=== PATIENT | male | born 1950 | race African-American/Black ===

== ENCOUNTER 2017-11-11 05:50 | Day surgery (SDC) | payer MEDICARE, OTHER ==
[~2017-11-11] VITALS: Ht 166.4 cm; Wt 72.6 kg
[2017-11-11] VITALS (12 sets, daily range): BP systolic 130–158; BP diastolic 83–96
[2017-11-11] MEDS ORDERED: Proparacaine 0.5% Opth Soln 15ml RIGHT EYE ONE (07:00)
[2017-11-11] MEDS ORDERED: Tetracaine 0.5% Opth 4ml Soln RIGHT EYE ONE (07:00)
[2017-11-11] MEDS ORDERED: Akten 3.5% 1ml Btl RIGHT EYE ONE (07:00)
[2017-11-11] MEDS ORDERED: BSS 15ml BTL ONE ×2 (09:45→11:06)
[2017-11-11] MEDS ORDERED: Pilocarpine 2% Opth 15ml Soln ONE (09:45)
[2017-11-11] MEDS ORDERED: Povidone-Iodine 5% opth solution ONE (09:45)
[2017-11-11] MEDS ORDERED: Sodium Hyaluronate 14 mg/ml 0.85ml ONE (09:45)
[2017-11-11] MEDS ORDERED: Sterile Water 10ml Vial ONE (10:00)
[2017-11-11] MEDS ORDERED: EPINEPHrine 1mg/1ml Amp ONE ×2 (10:00→11:06)
[2017-11-11] MEDS ORDERED: Dexamethasone 4mg/ml vial ONE (10:00)
[2017-11-11] MEDS ORDERED: Pred Forte 1% Opth Susp 1ml ONE (10:00)
[2017-11-11] MEDS ORDERED: Maxitrol Opth Oint 3.5gm ONE (10:00)
[2017-11-11] MEDS ORDERED: BSS 500ml btl ONE (10:00)
[2017-11-11] MEDS: Cyclopentolate 1% Opth Sol 2ml RIGHT EYE SCH ×3 (10:02→10:19)
[2017-11-11] MEDS: Phenylephrine 10% Opth Soln 5ml RIGHT EYE SCH ×3 (10:03→10:18)
[2017-11-11] MEDS: Tropicamide 1% Opth 15ml Soln RIGHT EYE SCH ×3 (10:03→10:18)
[2017-11-11] MEDS: Ketorolac Tromethamine Opth 5ml Soln RIGHT EYE SCH ×4 (10:04→10:21)
[2017-11-11] MEDS: Tobramycin Op Soln 0.3% 5ml RIGHT EYE SCH ×3 (10:05→10:20)
[2017-11-11] MEDS ORDERED: fentaNYL 100 mcg/2 mL IV ONE (10:30)
[2017-11-11] MEDS ORDERED: LR 1000ml ONE (10:30)
[2017-11-11] MEDS ORDERED: Sterile Water Irrig 1000ml IRRIG ONE (10:30)
[2017-11-11] MEDS ORDERED: HYDROCHLOROTHIA25 MG ORAL (10:30)
[2017-11-11] MEDS ORDERED: Propofol 200mg/20ml IV ONE (10:30)
[2017-11-11] MEDS ORDERED: NS Irrig 1000ml ONE (10:30)
[2017-11-11] MEDS ORDERED: Midazolam 2mg/2ml Inj ONE (10:30)
[2017-11-11] MEDS ORDERED: NORVASC2.5 MG ORAL (10:31)
[2017-11-11] MEDS ORDERED: LOSARTAN POTASS25 MG ORAL (10:31)
--- NOTE | 2017-11-11 10:50 | Anethesia Preoperative Eval ---
Anesthesia Pre-op PMH/ROS General Date of Evaluation: Nov 11, 2017 Time of Evaluation: 10:18 Anesthesiologist: Barbara ASA Score: ASA 2 Mallampati Score Class I : Soft palate, uvula, fauces, pillars visible Class II: Soft palate, uvula, fauces visible Class III: Soft palate, base of uvula visible Class IV: Only hard plate visible Mallampati Classification: Class II Surgeon: Sandra Diagnosis: velia bee Surgical Procedure: R eye cataract extracion Anesthesia History: none Social History: smoking - h/o Family History: no anesthesia problems Allergies: Coded Allergies: No Known Allergies (Unverified , 11/10/17) Medications: see eMAR Past Medical History Cardiovascular: Reports: HTN, Denies: CAD, CO, valve dz, arrhythmia, other Pulmonary: Denies: asthma, COPD, GERALDINE, other Gastrointestinal/Genitourinary: Reports: GERD, Denies: CRI, ESRD, other Neurologic/Psychiatric: Denies: dementia, CVA, depression/anxiety, TIA, other Endocrine: Denies: DM, hypothyroidism, steroids, other HEENT: Reports: cataract (L), cataract (R), Denies: glaucoma, [place] (L), [place] (R), other Hematology/Immune: Denies: anemia, DVT, bleeding disorder, other Musculoskeletal/Integumentary: Denies: OA, RA, DJD, DDD, edema, other PMH Narrative: as above PSxH Narrative: see H&P Anesthesia Pre-op Phys. Exam Physician Exam Last Vital Signs Date Time Temp Pulse Resp B/P (MAP) Pulse Ox O2 Delivery O2 Flow Rate FiO2 11/11/17 10:22 98.6 76 18 150/96 97 Room Air 98.6 Constitutional: NAD Neurologic: CN 2-12 intact Cardiovascular: RRR, no M/R/G Respiratory: CTA Gastrointestinal: S/NT/ND Airway Exam Mallampati Score: Class II MO: full Neck: stiff ROM: limited Teeth: missing Dentures: no upper, no lower Anesthesia Pre-op A/P Labs see chart Risk Assessment & Plan Assessment: ASA 2 Plan: MAC Status Change Before Surgery: No Pre-Antibiotics Drug: none DANY MERAZ M.D. Nov 11, 2017 10:50
[2017-11-11] MEDS ORDERED: DiphenhydrAMINE 50mg/ml Inj IVP PRN (11:00)
[2017-11-11] MEDS ORDERED: fentaNYL 100 mcg/2 mL IV PRN (11:00)
[2017-11-11] MEDS ORDERED: Lidocaine 2% MPF 5ml Vial INJ ONE (11:06)
--- NOTE | 2017-11-11 12:12 | Brief Operative Note ---
Immediate Post Operative Note Operative Note Chief Complaint: blurry vision, OD Pre-op Diagnosis: cataract, od Procedure: phaco with iol, od Post-op Diagnosis: pseudophakia Post-op Diagnosis: same as pre-op Findings: consistent w/pre-op dx studies Surgeon: rosario Anesthesiologist: yoav Anesthesia: MAC Specimen: none Complications: none Condition: stable Fluids: LR Estimated Blood Loss: none Drains: none Implant(s) used?: Yes GAMALIEL ESPINO Nov 11, 2017 12:12
--- NOTE | 2017-11-11 12:13 | Operative Note - PDOC ---
Operative Note Operative Note Chief Complaint: blurry vision, OD Pre-op Diagnosis: cataract, od Procedure: phaco with iol, od Post-op Diagnosis: pseudophakia Post-op Diagnosis: same as pre-op Operative Findings: consistent w/pre-op dx studies Surgeon: rosario Anesthesiologist: yoav Anesthesia: MAC Specimen: none Complications: none Condition: stable Fluids: LR Estimated Blood Loss: none Drains: none Implant(s) used?: Yes Indications for Procedure cataract Description of Procedure This patient has been complaining visually significant cataract in the affected eye with the best corrected visual acuity under moderate glare conditions worse. The patient complains of difficulties with glare in performing activities of daily living and wants to manage personal affairs with comfort and accuracy and see well enough to move with safety at home and outdoors. The risks, benefits and alternatives of the procedure were discussed with the patient in the office prior to scheduling surgery. All questions from the patient were answered after the surgical procedure was explained in detail. The risks of the procedure as explained to the patient include, but are not limited to, pain, infection, bleeding, loss of vision, retinal detachment, need for further surgery, loss of lens nucleus, double vision, etc. Alternative procedures were discussed which include, to do nothing or seek a second opinion. Informed consent for this procedure was obtained from the patient. The patient was referred to a primary care physician for a cardiopulmonary clearance prior to surgery, after proper evaluation was done patient was properly scheduled for outpatient surgery. The patient was brought to the operating room where the anesthesiologist established I.V. lines and cardiac monitoring leads. Mild intravenous sedation was administered. The patient was then prepared with a 5% solution of povidone -iodine to the conjunctival fornix and lashes, and a 5% solution of povidone- iodine to the lids and periorbital skin. The patient was then draped in the usual sterile fashion. A lid speculum was then placed in the operative eye. A keratome blade was then used to create a biplanar incision into the anterior chamber. Viscoelastics was then instilled into the anterior chamber. A capsulorrhexis was then fashioned with an utrata forceps. BSS and a cannula were then used to hydrodissect and hydro delineate the lens. Paracentesis incision was made at 3 o'clock with sharp blade. The phacoemulsification unit, after being properly adjusted and tested, was then used to emulsify the nucleus. Residual cortical material was aspirated with the irrigation and aspiration unit. Healon was then instilled into the anterior chamber. The corneal wound was then enlarged to the size of the optic with the markel keratome blade. The intraocular lens was then inspected for right power and size and thought to be satisfactory. Then the lens was gently placed in the capsular bag. Positioning within the capsular bag was confirmed by direct visualization. Viscoelastics was removed from the anterior chamber using the irrigation and aspiration unit. The corneal wound was then tested for leaks and none were found. The lid speculum were then removed. Sponge and needle counts were correct. An eye patch and shield were placed over the operative eye. The patient was taken to the recovery room in stable condition. There were no complications. The patient tolerated the procedure well. The patient was then transferred to the ambulatory surgery unit in stable and satisfactory condition , was given detailed written instructions and asked to follow up in the office the next day. GAMALIEL ESPINO Nov 11, 2017 12:13
--- NOTE | 2017-11-11 13:03 | Immediate Post-Op Evaluation ---
Immediate Post-Op Evalulation Immediate Post-Op Evalulation Procedure: R eye cataract extraction with IOL Date of Evaluation: Nov 11, 2017 Time of Evaluation: 11:02 IV Fluids: 300 Blood Products: none Estimated Blood Loss: none Urinary Output: none Blood Pressure Systolic: 156 Blood Pressure Diastolic: 86 Pulse Rate: 78 Respiratory Rate: 20 O2 Sat by Pulse Oximetry: 99 Temperature (Fahrenheit): 97.2 Pain Score (1-10): 1 Nausea: No Vomiting: No Complications none Patient Status: awake, patent, none Hydration Status: adequate DANY MERAZ M.D. Nov 11, 2017 13:03
--- NOTE | 2017-11-11 13:04 | 48 Hour Post Anesthesia Eval ---
Post Anesthesia Evaluation Procedure: R eye cataract extraction with IOL Date of Evaluation: Nov 11, 2017 Time of Evaluation: 13:03 Blood Pressure Systolic: 148 0: 74 Pulse Rate: 68 Respiratory Rate: 20 Temperature (Fahrenheit): 97.5 O2 Sat by Pulse Oximetry: 98 Airway: patent Nausea: No Vomiting: No Pain Intensity: 1 Hydration Status: adequate Cardiopulmonary Status: stable Mental Status/LOC: patient returned to baseline Follow-up Care/Observations: n/a Post-Anesthesia Complications: none Follow-up care needed: ready to discharge DANY MERAZ M.D. Nov 11, 2017 13:04
--- NOTE | 2017-11-23 01:01 | Physician Query ---
--------- THIS DOCUMENT IS A PERMANENT PART OF THE MEDICAL RECORD --------- PLEASE COMPLETE DOCUMENT BEFORE SIGNING Dear Dr. ESPINO Date: 11/22/17 [employer] Agent/CDS Name: ANGELO ROBISON, FAUSTO Exercise your independent professional judgment when responding to the query. Questions asked do not imply a particular answer is desired or expected. We greatly appreciate your clarification on this issue. CLINICAL DOCUMENTATION STATES: Operative Note Operative Note Chief Complaint: blurry vision, OD Pre-op Diagnosis: cataract, od Procedure: phaco with iol, od Post-op Diagnosis: pseudophakia Post-op Diagnosis: same as pre-op Please respond to the following question: WHAT TYPE OF CATARACT DID THE PATIENT HAVE IF KNOWN? PHYSICIAN RESPONSE: NUCLEAR SCLEROTIC AGE RELATED RIGHT EYE GAMALIEL ESPINO M.D. DATE & TIME [facility]
== END 2017-11-11 13:30 | disposition home or self-care (01) ==
LOC: SUR 05:50
DX: H25.11 Age-related nuclear cataract, right eye (principal); I10 Essential (primary) hypertension; K21.9 Gastro-esophageal reflux disease without esophagitis
CPT/HCPCS: 66984; J0171; J1100; J2250; J2704; J3010; J3370; J7120; V2632; 94003; 94150; A4216

== ENCOUNTER 2019-08-11 15:07 | Inpatient (IN) | payer MEDICARE, OTHER ==
[~2019-08-11] VITALS: Ht 172.7 cm; Wt 64.0 kg
[2019-08-11] VITALS (20 sets, daily range): BP systolic 70–120; BP diastolic 20–52
[~2019-08-11 15:07] MED LIST: HYDROCHLOROTHIA25 MG ORAL; LOSARTAN POTASS25 MG ORAL; NORVASC2.5 MG ORAL
[2019-08-11] MEDS ORDERED: Versed 50mg/D5W 100ml 100 ML IV ONE ×2 (15:15→16:15)
--- NOTE | 2019-08-11 15:20 | NUR ---
ED Nurse Note: Patient brought in to ER from [facility] due to respiratory distress. pt had intubation upon arrival by EMT. 7mm, 24cm on Rt side. RT at bedside, mechanical ventilation initiated at FiO2 45%. pt non verbal and open eyes spontaneously but responds to deep pain only. pt restless and moving all extremities. skin dry and Rt elbow skin tear noted but no pressure ulcer noted. abdoman distended and RLQ puncture site with dressing noted.
--- NOTE | 2019-08-11 15:21 | Emergency Room Report ---
History of Present Illness General Chief Complaint: Dyspnea/Respdistress Source: Family Member, Medical Record, EMS Present Illness HPI The patient was brought by paramedics. He was in respiratory distress. His blood pressure in the field was 74/42. They were using a bag valve mask but then intubate the patient. His Accu-Chek was 83. There is no glaucoma Tirso Coma Scale was 3. They report that his right pupil is pinpoint. The patient has a history of IV drug abuse. He is a full code however there is a note on his paperwork that says he is hospice. The patient is intubated and cannot answer questions. From review of the records the patient has metastatic liver cancer, ascites, leukocytosis, anemia, history of hypertension, alcohol and drug abuse. He was also seen on the and had acute kidney injury. Family states the patient was receiving oxycodone for pain. He was responsive before he deteriorated. Allergies: Coded Allergies: No Known Allergies (Unverified , 11/10/17) Patient History Limited by: medical condition Past Medical History: see triage record, old chart reviewed Social History: Denies: smoking, alcohol use - prior, drug use - in past Social History Narrative SNF Reviewed Nursing Documentation: PMH: Agreed; PSxH: Agreed Nursing Documentation-PMH Past Medical History: No History, Except For Hx Cardiac Problems: No - Anemia Hx Hypertension: Yes - ETOH abuse Hx Cancer: Yes - Metastatic liver CA Hx Gastrointestinal Problems: Yes - Ascites, cirrhosis, leukocytosis Hx Neurological Problems: No Review of Systems All Other Systems: limited Physical Exam Vital Signs Date Time Temp Pulse Resp B/P (MAP) Pulse Ox O2 Delivery O2 Flow Rate FiO2 08/11/19 15:11 72 12 70/52 (58) 94 Endotracheal Tube Sp02 EP Interpretation: reviewed, abnormal - Interpreted as low by me General Appearance: Chronically Ill, Stupor Head: normocephalic, atraumatic Eyes: left eye other - opacity; bilateral eye Scleral Injection ENT: moist mucus membranes, other - ET tube Neck: supple Respiratory: decreased breath sounds, crackles Cardiovascular #1: regular rate, rhythm, edema Cardiovascular #2: 2+ radial (R) Gastrointestinal: distended - Minimally, other - dressing R flank - most likely from paracentesis/or bx, decreased bowel sounds Genitourinary: penis normal - uncircumcised Musculoskeletal: decreased range of motion Neurologic: other - unresponsive Psychiatric: other - flaccid Reflexes: 1+ knee (R), 1+ knee (L) Skin: other - cool Procedures Critical Care Time Critical Care Time Total Critical Care Time: 120 min bedside evaluation and treatment excludes procedures (EKG). Reason for critical care: resp failure, NSTEMI, metabolic acidosis, profound anemia, hypotension, sepsis Possible complications: hypotension, hypertension, IL, shock, arrhythmias, metabolic acidosis, end organ damage, respiratory failure. Interventions: EJ, vent orders, blood draw by ERMD, blood transfusion order, discussion with blood bank, antibiotics, fluid bolus, bicarb, reassessment, warming, discussion with pharmacy,. discussion level of care with family Course: Patient presented with EMS after respiratory failure and intubation. Fluid bolus begun after EJ begun by me. Call with critical hemoglobin. Blood transfusion up ordered. Call with elevated troponin. Aspirin administered. ABG obtained on vent. Profound acidosis. Bicarbonate administered. Sedation ordered. Patient more alert. Elevated white count. Antibiotics ordered. Chest x-ray obtained with pulmonary infiltrates. Blood pressure improved. 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 Discussion with pharmacy. Family present and insisted on DNR status. OG tube ordered. Removed by nurse. Abdominal film unremarkable. Blood pressure improved. Prognosis poor. Discussed in detail with admitting physicians. Consultations: nursing staff, EMS, family, admitting MDs, RT, pharmacy Performed by: Dr. Marroquin Tolerated well condition = critical Medical Decision Making Diagnostic Impression: Primary Impression: Respiratory failure Qualified Codes: J96.01 - Acute respiratory failure with hypoxia Additional Impressions: Hypothermia Qualified Codes: T68.XXXA - Hypothermia, initial encounter Profound anemia Qualified Codes: D64.9 - Anemia, unspecified Transient hypotension Metabolic acidosis Elevated troponin NSTEMI (non-ST elevated myocardial infarction) Severe sepsis Pancreatitis Qualified Codes: K85.90 - Acute pancreatitis without necrosis or infection, unspecified Elevated liver enzymes ER Course Patient with respiratory failure in the field and hypotension intubated. Differential includes opiate excess, sepsis, acute myocardial infarction, respiratory failure amongst others. The patient needs to be stabilized. There is no IV access and I started a external jugular on the left-hand side. Labs drawn by me femoral he. Fluid bolus administered. EKG, chest x-ray, blood cultures and labs ordered. He is starting to respond and blood pressure initially better. EKG with sinus rhythm right bundle branch block rate 72 left anterior superior hemiblock. Bloods drawn by ga R femoral 30 cc. Call for critical low hemoglobin. Blood transfusion ordered. Blood pressure is already improved with IV bolus. Capillary fill good. Tachypnea above vent rate. More alert. (Sepsis re-eval 16:00) ABG with profound acidosis. Need to investigate possible causes. Bicarb ordered. Elevated WBC and lactic acid. 16:50. Antibiotics ordered. Also fomepizole ordered. Elevated liver function test. Elevated lipase. Aspirin ordered for + troponin. Pharmacy states fomepizole on back order. Requested they get it from other hospital. Family want DNR. Patient was Hospice. Patient made DNR. About to start central line, but family make patient DNR. Lactic acid, acidosis probably combination of sepsis and liver dysfunction - however other causes need to be excluded. Patient admitted ICU, improved but critical. Blood not started in ED. blood consent signed by family. Prognosis poor. Laboratory Tests Test 08/11/19 15:10 08/11/19 15:57 White Blood Count 32.5 K/UL (4.8-10.8) *H Red Blood Count 1.73 M/UL (4.70-6.10) L Hemoglobin 5.2 G/DL (14.2-18.0) *L Hematocrit 17.3 % (42.0-52.0) L Mean Corpuscular Volume 100 FL (80-99) H Mean Corpuscular Hemoglobin 30.1 PG (27.0-31.0) Mean Corpuscular Hemoglobin Concent 30.1 G/DL (32.0-36.0) L Red Cell Distribution Width 16.0 % (11.6-14.8) H Platelet Count 299 K/UL (150-450) Mean Platelet Volume 4.6 FL (6.5-10.1) L Neutrophils (%) (Auto) % (45.0-75.0) Lymphocytes (%) (Auto) % (20.0-45.0) Monocytes (%) (Auto) % (1.0-10.0) Eosinophils (%) (Auto) % (0.0-3.0) Basophils (%) (Auto) % (0.0-2.0) Neutrophils % (Manual) Pending Lymphocytes % (Manual) Pending Platelet Estimate Pending Platelet Morphology Pending Prothrombin Time 20.9 SEC (9.30-11.50) H Prothrombin Time INR 2.0 (0.9-1.1) H PTT 62 SEC (23-33) H Sodium Level 129 MMOL/L (136-145) L Potassium Level 5.4 MMOL/L (3.5-5.1) H Chloride Level 96 MMOL/L (98-107) L Carbon Dioxide Level 8 MMOL/L (21-32) *L Anion Gap 26 mmol/L (5-15) H Blood Urea Nitrogen 33 mg/dL (7-18) H Creatinine 3.8 MG/DL (0.55-1.30) H Estimate Glomerular Filtration Rate 19.3 mL/min (>60) Glucose Level 46 MG/DL (74-106) L Osmolality 297 mOsm/kg (297-317) Lactic Acid Level 19.50 mmol/L (0.4-2.0) H Calcium Level 8.2 MG/DL (8.5-10.1) L Magnesium Level 3.2 MG/DL (1.8-2.4) H Total Bilirubin 1.9 MG/DL (0.2-1.0) H Direct Bilirubin 1.2 MG/DL (0.0-0.3) H Aspartate Amino Transferase (AST) 296 U/L (15-37) H Alanine Aminotransferase (ALT) 145 U/L (12-78) H Alkaline Phosphatase 73 U/L (46-116) Total Creatine Kinase 565 U/L (26-308) H Troponin I 0.326 ng/mL (0.000-0.056) Pro-B-Type Natriuretic Peptide 459 pg/mL (0-125) H Total Protein 6.0 G/DL (6.4-8.2) L Albumin 2.3 G/DL (3.4-5.0) L Globulin 3.7 g/dL Albumin/Globulin Ratio 0.6 (1.0-2.7) L Lipase 859 U/L (73-393) H Thyroid Stimulating Hormone (TSH) 1.662 uiU/mL (0.358-3.740) Salicylates Level < 0.2 ug/mL (2.8-20) L Acetaminophen Level 2 MCG/ML (10-30) L Serum Alcohol < 3 mg/dL Arterial Blood pH 6.741 (7.350-7.450) Arterial Blood Partial Pressure CO2 31.2 mmHg (35.0-45.0) L Arterial Blood Partial Pressure O2 111.6 mmHg (75.0-100.0) H Arterial Blood HCO3 4.1 mmol/L (22.0-26.0) *L Arterial Blood Oxygen Saturation 90.9 % (95-100) L Arterial Blood Base Excess -28.5 (-2-2) *L Zeeshan Test Positive EKG Diagnostic Results Rate: normal Rhythm: NSR ST Segments: no acute changes - Bundle branch block/ Rhythm Strip Diag. Results EP Interpretation: yes Rhythm: NSR, no PVC's, no ectopy Chest X-Ray Diagnostic Results Chest X-Ray Diagnostic Results : Chest X-Ray Ordered: Yes # of Views/Limited/Complete: 1 View Indication: Other EP Interpretation: Yes Interpretation: no effusion, no pneumothorax, other - ET good, bilat infiltrates Impression: Other Electronically Signed by: Electronically signed by Reuben Marroquin MD Other X-Ray Diagnostic Results Other X-Ray Diagnostic Results : X-Ray ordered: Abdomen # of Views/Limited Vs Complete: 2 View Indication: Other EP Interpretation: Yes Interpretation: nonspecific bowel gas, no sbo, other - No masses Impression: No acute disease Electronically Signed by: Electronically signed by Reuben Marroquin MD BP 95/23, HR 80 on transfer Status: improved Disposition: ADMITTED INPATIENT Condition: Critical Reuben Marroquin MD Aug 11, 2019 15:21
--- NOTE | 2019-08-11 15:25 | NUR ---
ED Nurse Note: rectal temp 92.9F reported toERMD.
--- NOTE | 2019-08-11 15:30 | NUR ---
ED Nurse Note: ERMD inserted EJ on Lt side and blood was drawn from Rt femoral by ERMD. blood work and swab sent to lab.
[2019-08-11 15:51] LABS: HEMATOCRIT 17.3 % (42.0-52.0); MEAN CORPUSCULAR VOLUME 100 FL (80-99); PLATELET COUNT 299 K/UL (150-450); RED BLOOD COUNT 1.73 M/UL (4.70-6.10)
[2019-08-11 16:05] LABS: WHITE BLOOD COUNT 32.5 K/UL (4.8-10.8)
[2019-08-11 16:06] LABS: HEMOGLOBIN 5.2 G/DL (14.2-18.0)
--- NOTE | 2019-08-11 16:09 | NUR ---
ED Nurse Note: ABG at bedside per RT.
[2019-08-11 16:29] LABS: ALANINE AMINOTRANSFERASE 145 U/L (12-78); ALBUMIN 2.3 G/DL (3.4-5.0); ALBUMIN/GLOBULIN RATIO 0.6 (1.0-2.7); ALKALINE PHOSPHATASE 73 U/L (46-116); ANION GAP 26 mmol/L (5-15); ASPARTATE AMINO TRANSFERASE 296 U/L (15-37); BILIRUBIN,TOTAL 1.9 MG/DL (0.2-1.0); BLOOD UREA NITROGEN 33 mg/dL (7-18); CALCIUM 8.2 MG/DL (8.5-10.1); CHLORIDE 96 MMOL/L (98-107); CREATINE KINASE 565 U/L (26-308); CREATININE 3.8 MG/DL (0.55-1.30); POTASSIUM 5.4 MMOL/L (3.5-5.1); SODIUM 129 MMOL/L (136-145)
[2019-08-11] MEDS ORDERED: Sodium Bicarbonate 50ml Carp IV ONE (16:30)
[2019-08-11 16:31] LABS: CARBON DIOXIDE 8 MMOL/L (21-32)
[2019-08-11 16:32] LABS: BILIRUBIN,DIRECT 1.2 MG/DL (0.0-0.3)
--- NOTE | 2019-08-11 16:50 | NUR ---
ED Nurse Note: no urine present in urine bag. CN informed.
--- NOTE | 2019-08-11 16:59 | NUR ---
ED Nurse Note: per pharmacist, medication Fomepizol is not available.
[2019-08-11] MEDS ORDERED: Vancomycin 1 GM in NS 275 ML IVPB ONE (17:00)
[2019-08-11] MEDS ORDERED: Piperacillin/Tazobactam 3.375 GM in NS 110 ML IVPB ONE (17:00)
[2019-08-11] MEDS ORDERED: LORazepam Inj 2mg/ml 1ml IV PRN (17:15)
[2019-08-11] MEDS ORDERED: Morphine Sulfate 4mg/ml Inj (IV USE ONLY) IVP PRN (17:15)
[2019-08-11] MEDS ORDERED: Albuterol/Ipratropium 3ml neb HHN PRN (17:15)
[2019-08-11] MEDS ORDERED: Nitroglycerin Subl 0.4mg tab SL PRN (17:15)
[2019-08-11] MEDS ORDERED: Miralax 17gm pkt ORAL PRN (17:15)
--- NOTE | 2019-08-11 17:19 | NUR ---
ED Nurse Note: ALLISON spoke to pt's sister. pt is DNR. ALLISON, CN, nursing food service supervisor made aware. NGT removed by ALLISON's verbal order.
--- NOTE | 2019-08-11 17:24 | NUR ---
ED Nurse Note: per CN, ERMD will insert central line. will wait for Ammonia and lactic reflux.
--- NOTE | 2019-08-11 17:34 | NUR ---
ED Nurse Note: per CN, ERMD said no need to draw ammonia and lactic reflux and no need to insert OG tube, no urine output was informed. per CN, finish Zosyn and start Vancomycin. pt is ok to be transferred to ICU without initiating blood transfusion.
--- NOTE | 2019-08-11 17:39 | NUR ---
ED Nurse Note: x-ray for abdoman at bedside.
--- NOTE | 2019-08-11 17:41 | Diagnostic Imaging Report ---
EXAM: XR Chest, 1 View CLINICAL HISTORY: S/P INTUB TECHNIQUE: Frontal view of the chest. COMPARISON: No relevant prior studies available. FINDINGS: Lungs: Pulmonary edema/infiltrates, right more than left. Pleural space: Unremarkable. No pneumothorax. Heart: Unremarkable. No cardiomegaly. Mediastinum: Unremarkable. Bones/joints: Unremarkable. Tubes, lines and devices: ET tube 2 cm above the wan. IMPRESSION: 1. ET tube 2 cm above the wan. 2. Pulmonary edema/infiltrates, right more than left.
[2019-08-11] MEDS ORDERED: ROXICODONE15 MG ORAL (17:42)
[2019-08-11] MEDS ORDERED: BACTRIM DS TAB1 EAC1 ORAL (17:42)
[2019-08-11] MEDS ORDERED: IMODIUM MULTI-1 EACH PO (17:42)
[2019-08-11] MEDS ORDERED: DOCUSATE SODIU100 MG ORAL (17:42)
[2019-08-11] MEDS ORDERED: ZOFRAN4 M3 ORAL (17:42)
[2019-08-11] MEDS ORDERED: FERROUS SULFAT325 MG ORAL (17:42)
--- NOTE | 2019-08-11 17:59 | NUR ---
NURSE NOTES: Report received from AAMIR Malloy.
--- NOTE | 2019-08-11 18:15 | NUR ---
ED Nurse Note: report given to AAMIR Alexis.
--- NOTE | 2019-08-11 18:20 | NUR ---
ED Nurse Note: pt transferred to ICU with 2 RN and 1 RT. Reuben and KRISS Clark at ICU notified no urine present in urine bag, ERMD made aware and blood transfusion has not initiated and ERMD said it is ok to transfer pt to ICU. blood transfusion consent was handed to AAMIR Alexis.
--- NOTE | 2019-08-11 18:28 | Diagnostic Imaging Report ---
EXAM: XR Abdomen, 1 View CLINICAL HISTORY: TUBE PLCMT TECHNIQUE: Frontal supine view of the abdomen/pelvis. COMPARISON: No relevant prior studies available. FINDINGS: Intraperitoneal space: Abdominal distention which may be due to ascites. Gastrointestinal tract: Nonobstructive bowel gas pattern. Bones/joints: Unremarkable. Tubes, lines and devices: No NG tube visualized. IMPRESSION: 1. No NG tube visualized. 2. Nonobstructive bowel gas pattern. 3. Abdominal distention which may be due to ascites.
--- NOTE | 2019-08-11 18:32 | NUR ---
NURSE NOTES: Patient arrived to room 246-I, intubated on a 7.5 et tube at 23cm at the lip[ with vetilator settings of AC 16, TV: 600, FIO2 : 45%. patient is saturating at 100% with RR of 32 aand volumes of 650m Addendum: 08/11/19 at 1844 by GOPAL VASQUEZ RN ls per breaths, HR is at 75-80 in sinus rhythm, jensen noted with no urine draining though it. Blood pressure is 102/30. 90.5 F temperature has been taken rectally, received from ER with versed of 3mg/h.
[2019-08-11] MEDS ORDERED: Amikacin Rx to dose MISC PRN (19:30)
--- NOTE | 2019-08-11 19:30 | NUR ---
HAND-OFF: Report given to AAMIR Gamboa. patient started on NS at 100ml/hr, patient remains on mechanical ventilator with settings of AC 16, TV: 600 and FIO2 of 45%. has BP of 96/24 with HR at 78.
--- NOTE | 2019-08-11 19:30 | NUR ---
NURSE NOTES: Received report from Reuben RUTLEDGE. Patient in bed comatose. Code status DNR. ETT 7.5/23cm AC 16, TV 600, fi02 45%. 0 peep. No s/s of acute distress noted. NPO. Pardo intact no urine output. Left EJ #18 intact no s/s of infiltration. Temp 90.4 axillary warm blanket on. Hgb 5.2. comfort measure continue. repositioned. oral care provided. bed alarm on. bed locked and in low position. Will continue plan of care.
--- NOTE | 2019-08-11 19:40 | NUR ---
NURSE NOTES: Spoke to the Family of the Patient that do not wish to continue the full care of the patient. Pt was to become hospice care today. Patient's brother and sister who are both decision makers have requested for patient to naturally . Patient's brother asked about the process and the new POLST was signed for comfort measures only. They wish to have patient terminally extubated after the daughter of the patient arrives from [place]. Called Dr. Rosas and left a message regarding the wishes of the family. Will await orders from Dr Rosas and endorsed to both Primary RN and supervisor dry paste for PM shift.
--- NOTE | 2019-08-11 20:28 | NUR ---
NURSE NOTES: Dr. Rosas called and made aware of patient family request, with new order DNR, no blood transfusion comfort measure only. Dr. Rosas will be here in am to extubate the patient. Called Bennett patient brother and made aware.
[2019-08-11] MEDS ORDERED: Heparin 5000 units/ml inj SUBQ SCH (21:00)
[2019-08-11] MEDS ORDERED: Ertapenem 0.5 GM in NS 55 ML IV SCH (21:00)
--- NOTE | 2019-08-11 22:25 | NUR ---
NURSE NOTES: Patient in bed continue comfort measure. BP 75/13 HR 78 SR with BBB. Turned and repositioned. Wound care provided. Patient with left and right elbow Pressure injury. will order P200 mattress. bed bath given tolerated well. Continue frequent visual checks.
[2019-08-11] MEDS ORDERED: Amikacin 500 MG in NS 110 ML IV ONE (23:00)
[2019-08-11] MEDS ORDERED: Vancomycin 1 GM in D5W 275 ML IV SCH (23:45)
[2019-08-12] VITALS: BP 84/18
[2019-08-12 00:30] VITALS: BP 66/19
--- NOTE | 2019-08-12 00:30 | NUR ---
NURSE NOTES: Patient with labored breathing, continue on ETT to vent Fi02 100% satting 96%. BP 66/19 HR 63 SR with BBB. Temp 94 axillary. comfort measure continue. bilateral upper and lower extremities elevated with pillows. will continue plan of care.
--- NOTE | 2019-08-12 00:45 | NUR ---
NURSE NOTES: Patient SB HR 57. Family at bedside. Patient with agonal breathing. continue comfort measure.
[2019-08-12 01:00] VITALS: BP 66/19
--- NOTE | 2019-08-12 01:08 | NUR ---
NURSE NOTES: Patient asystolic at 1:08 AM. There was no spontaneous respiration. No spontaneous heart rate. No blood pressure. will call ER .
--- NOTE | 2019-08-12 01:36 | NUR ---
Dr. Carl came and pronounced the patient at 1:08 AM. Daughter Sujata called and made aware, asked daughter if she have mortuary of choice per Daughter They don't have and per daughter call [facility]. Charge nurse and pleating supervisor made aware. will provide post mortem care after we call [facility].
--- NOTE | 2019-08-12 01:36 | Emergency Room Report ---
History of Present Illness General Chief Complaint: Dyspnea/Respdistress Source: Medical Record Present Illness HPI This is a 69-year-old male who was admitted earlier for hypotension and respiratory failure. He was intubated. He was in hospice and turned out to be comfort care. I was called to the ICU to pronounce the patient. He became asystolic at 1:08 AM. There was no spontaneous respiration. No spontaneous heart rate. No blood pressure. So I pronounced the patient at 1:08 AM. Allergies: Coded Allergies: No Known Allergies (Unverified , 11/10/17) Nursing Documentation-[facility] Past Medical History: No History, Except For Hx Cardiac Problems: Yes Hx Hypertension: Yes Hx Cancer: Yes - Metastatic liver CA Hx Gastrointestinal Problems: Yes - Ascites, cirrhosis, leukocytosis,ETOH, abdominal pain Hx Neurological Problems: No Physical Exam Vital Signs Date Time Temp Pulse Resp B/P (MAP) Pulse Ox O2 Delivery O2 Flow Rate FiO2 08/11/19 15:09 75 30 45 08/11/19 15:10 97 Mechanical Ventilator 08/11/19 15:11 70/52 (58) 08/11/19 16:16 92.9 Medical Decision Making Diagnostic Impression: Primary Impression: Respiratory failure Qualified Codes: J96.01 - Acute respiratory failure with hypoxia Additional Impressions: Transient hypotension Hypothermia Qualified Codes: T68.XXXA - Hypothermia, initial encounter Pancreatitis Qualified Codes: K85.90 - Acute pancreatitis without necrosis or infection, unspecified Severe sepsis Elevated liver enzymes Elevated troponin NSTEMI (non-ST elevated myocardial infarction) Metabolic acidosis Profound anemia Qualified Codes: D64.9 - Anemia, unspecified Last Vital Signs Date Time Temp Pulse Resp B/P (MAP) Pulse Ox O2 Delivery O2 Flow Rate FiO2 08/12/19 00:00 100 08/12/19 00:00 Mechanical Ventilator 08/11/19 23:11 78 33 08/11/19 23:00 76/22 (40) 95 08/11/19 19:00 90.5 Disposition: Condition: Referrals: NON PHYSICIAN (PCP) Jules Carl MD Aug 12, 2019 01:36
--- NOTE | 2019-08-12 01:50 | NUR ---
NURSE NOTES: [facility] called # [id number].
--- NOTE | 2019-08-12 02:00 | NUR ---
NURSE NOTES: Baker Doughnut was notified that patient at 0108. code status DNR.
--- NOTE | 2019-08-12 02:49 | NUR ---
NURSE NOTES: Edvin Ramirez from [facility] called and made aware of patient history, patient with history of IV drug abuse, liver cancer metastasis ,ETOH,Ascites,cirrhosis, left eye cataract. Per Edvin case closed.
--- NOTE | 2019-08-12 03:15 | NUR ---
NURSE NOTES: Body taken to morgue with security.
[2019-08-12] MEDS ORDERED: Pantoprazole Inj IVP SCH (09:00)
--- NOTE | 2019-08-12 11:58 | History & Physical ---
History and Physical History & Physicial Patient prior my visit. Saul Barahona MD Aug 12, 2019 11:58
--- NOTE | 2019-08-12 21:17 | Discharge Summary ---
Discharge Summary Discharge Summary _ SUMMARY DATE OF ADMISSION: 08/11/2019 DATE OF EXPIRATION: 08/12/2019 REASON FOR ADMISSION: 69 years old male with past medical history of metastatic liver cancer, ETOH abuse, anemia, liver cirrhosis, hypertension, history of IV drug abuse, was brought by paramedics in respiratory distress. Blood pressure in the field was 74/42. Watch Assembly Inspector initially used a [id number] , but then intubated the patient. Accu-Chek was 83. [place] Coma Scale was 3. Right pupil was pinpoint. There was a note in his paperwork stating that patient was on hospice. Patient was intubated and unable to provide any history. Upon evaluation blood pressure was 70/52. Patient was hypothermic with temperature 92.9. Laboratory work-up revealed WBC 32.5, hemoglobin 5.2, hematocrit 17.3, platelet count 299. ABG on vent 550 AC rate 16 and FiO2 45% revealed pH 6.74, bicarb 4.1 and O2 sat 90%. Chemistry showed sodium 129 potassium 5.4,, CO2 8. Anion gap 26. BUN 33, creatinine 3.8. Lactic acid 19.5. Total bilirubin 1.9, direct bilirubin 1.2. AST 296, ALT 145. Total CK 565. Troponin elevated 0.36, proBNP 459. Albumin 2.3. Next TSH within normal limits. 9 Serum salicylates, Tylenol and alcohol levels were negative. Chest x-ray revealed ET tube 2 cm above the wan. Pulmonary edema/ infiltrates right more than left., Abdominal x-ray revealed nonobstructive bowel gas pattern and abdominal distention, possibly due to ascites. EKG revealed sinus rhythm with right bundle branch block and left anterior superior hemiblock heart rate 72., Patient received IV bolus with some improvement in blood pressure. Patient received bicarbonate. Patient pancultured, started on empiric antibiotics. Patient subsequently admitted to ICU for further management. Overall prognosis was poor HOSPITAL COURSE: Patient admitted to ICU. Ventilator support and pulmonary toilet provided. Warming measure provided. Patient started on the IV fluids and empiric antibiotics. Temperature improved, but patient remained hypothermic. Blood pressure initially responded to fluid bolus, but then started to trend down. DVT and GI prophylaxis provided. Patient remain n.p.o. Pardo showed no urinary output. Levophed initially was ordered. However subsequently CODE STATUS was clarified. Patient was DNR/DNI status. Comfort care provided. Patient repositioned every 2 hours. Oral care provided. Patient's condition was rapidly deteriorated. Patient was pronounced on 08/12/10 at 1:08 AM. Cause of :cardiopulmonary arrest FINAL DIAGNOSES: Severe sepsis wih shock Elevated troponin , possibly NSTEMI Acute hypoxemic respiratory failure, requiring intubation Profound anemia Metabolic acidosis Pancreatitis Elevated liver enzymes Acute kidney injury Electrolyte imbalance History of metastatic liver CA ETOH abuse Comfort care I have been assigned to dictate discharge summary for this account. I was not involved in the patient's management. Alivia Vital NP Aug 12, 2019 21:17
== END 2019-08-12 01:08 | disposition expired | DRG 720 ==
LOC: EDBD 15:07 → EDBEDREQ 15:15 → EMR 15:49 → ICU 16:19 → EDBEDREQ 16:37
PROC: 5A1935Z Respiratory Ventilation, Less than 24 Consecutive Hours (ICD-10-PCS; principal; 2019-08-11)
PROC: 0BH17EZ Insertion of Endotracheal Airway into Trachea, Via Natural or Artificial Opening (ICD-10-PCS; 2019-08-11)
DX: A41.9 Sepsis, unspecified organism (principal); R65.21 Severe sepsis with septic shock; I21.4 Non-ST elevation (NSTEMI) myocardial infarction; Z51.5 Encounter for palliative care; J96.01 Acute respiratory failure with hypoxia; D64.9 Anemia, unspecified; E87.2 Acidosis; N17.9 Acute kidney failure, unspecified; K85.90 Acute pancreatitis without necrosis or infection, unspecified; F10.10 Alcohol abuse, uncomplicated; Z66 Do not resuscitate; E87.8 Other disorders of electrolyte and fluid balance, not elsewhere classified; I45.2 Bifascicular block; Z85.05 Personal history of malignant neoplasm of liver; R74.8 Abnormal levels of other serum enzymes
CPT/HCPCS: 36415; 36600; 71045; 74018; 80053; 82248; 82550; 82803; 83605; 83690; 83735; 83880; 83930; 84443; 84484; 85007; 85025; 85610; 85730; 86850; 86900; 86901; 86920; 87040; 87081; 93005; 94002; 94003; 94664; 96360; 99285; G0480; J7030